=== PATIENT | female | born 1960 | race Caucasian/White ===

== ENCOUNTER → 2023-12-07 08:01 | Outpatient (REF) | payer OTHER, SELFPAY | LOC: HWRAD 08:01 | PROVIDERS: ATTENDING PHYSICIAN Internal Medicine Critical Care Medicine; FAMILY PHYSICIAN Physician Assistant Medical | DX: R91.8 Other nonspecific abnormal finding of lung field (principal) | CPT/HCPCS: 71250 ==

== ENCOUNTER → 2024-02-14 06:28 | Day surgery (SDC) | payer OTHER, SELFPAY | LOC: GI 06:28 | PROVIDERS: ATTENDING PHYSICIAN Internal Medicine Gastroenterology | DX: Z12.11 Encounter for screening for malignant neoplasm of colon (principal); Z86.010 Personal history of colon polyps; K64.8 Other hemorrhoids; D12.2 Benign neoplasm of ascending colon; D12.3 Benign neoplasm of transverse colon | CPT/HCPCS: 45385; 45380; 88305 ==

== ENCOUNTER → 2024-04-20 07:38 | Outpatient (REF) | payer OTHER, SELFPAY | LOC: RAD 07:38 | PROVIDERS: ATTENDING PHYSICIAN Nurse Practitioner Family | DX: R05.3 Chronic cough (principal) | CPT/HCPCS: 71046 ==

== ENCOUNTER → 2024-06-29 09:51 | Outpatient (REF) | payer OTHER, SELFPAY | LOC: HWRAD 09:51 | PROVIDERS: ATTENDING PHYSICIAN Family Medicine; FAMILY PHYSICIAN Physician Assistant Medical | DX: M54.6 Pain in thoracic spine (principal) | CPT/HCPCS: 71046 ==

== ENCOUNTER → 2024-07-13 09:21 | Outpatient (REF) | payer OTHER, SELFPAY | LOC: HWRAD 09:21 | PROVIDERS: ATTENDING PHYSICIAN Family Medicine; FAMILY PHYSICIAN Physician Assistant Medical | DX: M54.6 Pain in thoracic spine (principal) | CPT/HCPCS: 76700 ==

== ENCOUNTER → 2024-11-17 07:25 | Outpatient (REF) | payer OTHER, SELFPAY | LOC: HWRAD 07:25 | PROVIDERS: ATTENDING PHYSICIAN Physician Assistant Medical | DX: R10.11 Right upper quadrant pain (principal) | CPT/HCPCS: 76700 ==

== ENCOUNTER → 2024-12-07 07:57 | Outpatient (REF) | payer OTHER, SELFPAY | LOC: HWRAD 07:57 | PROVIDERS: ATTENDING PHYSICIAN Internal Medicine Critical Care Medicine; FAMILY PHYSICIAN Physician Assistant Medical; REFERRING PHYSICIAN Specialist | DX: R91.8 Other nonspecific abnormal finding of lung field (principal) | CPT/HCPCS: 71250 ==

== ENCOUNTER 2025-01-23 13:40 | Inpatient (IN) | payer OTHER, SELFPAY ==
[2025-01-23] VITALS (46 sets, daily range): BP systolic 121–184; BP diastolic 73–115; BMI 30.3
[2025-01-23 12:05] LABS: Glucose - Point of Care 96 mg/dl (70-99)
[2025-01-23 12:16] LABS: Hematocrit 44.6 % (37.0-47.0); Hemoglobin 15.2 g/dL (12.0-16.0); Mean Corp Hgb Conc. 34.1 g/dL (33.0-37.0); Mean Corpuscular Volume 89.7 fL (81.0-99.0); Nucleated Red Blood Cells % 0 %; Platelet Count 299 10^3/uL (130-400); Red Cell Dist. Width 13.6 % (11.5-14.5)
[2025-01-23 12:36] LABS: ALT (SGPT) 92 U/L (0-35); AST (SGOT) 41 U/L (14-36); Albumin 5.1 g/dl (3.5-5.0); Alkaline Phosphatase 89 U/L (38-126); Blood Urea Nitrogen 14 mg/dl (7-17); Calcium 10.9 mg/dl (8.4-10.2); Carbon Dioxide 32 mmol/L (22-30); Chloride 102 mmol/L (98-107); Glucose 101 mg/dl (70-99); Potassium 4.2 mmol/L (3.5-5.1); Sodium 142 mmol/L (135-145); Total Protein 8.3 g/dl (6.3-8.2); eGFR > 60.00
[2025-01-23 12:37] LABS: INR 1.01; PT 13.6 Sec (11.4-14.6)
[2025-01-23 12:38] LABS: APTT 27.9 Sec (23.4-35.0)
--- NOTE | 2025-01-23 12:39 | ED.CVA ---
History of Present Illness
General
Chief Complaint: CVA/TIA Symptoms
Source: patient
Time Seen by Provider: 01/23/25 12:06
Onset of Stroke Symptoms
Onset of symptoms known: Yes
Date of onset of symptoms: 01/23/25
Time of onset of symptoms: 10:00
History of Present Illness
History of Present Illness:
64-year-old female presents to the emergency room for evaluation after having a sudden change in her vision at 10 AM. Patient went to an eye doctor where she was noted to have some difficulty speaking prompting her to be sent to the emergency room.
Patient also experiencing some paresthesias of the left hand. She is complaining of a right-sided headache as well. No recent trauma. Patient does have a history of MS. Stroke alert was called on arrival.
Past History
Past History
ED Past Medical History: Other (MS)
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
Social History
Tobacco: Non-smoker
Alcohol: None
Personal:
Living: with family
Family History
Family History: Negative Early CAD
Phy Exam
Physical Exam
Physical Exam:
General: Awake, Alert, Oriented X3. Anxious, mild aphasia
Vitals: unremarkable
Head: Atraumatic
Eyes: Pupils equal, EOMI
Throat: Airway intact, no exudates
Neck: Trachea midline
Lungs: Clear and equal b/l
Heart: Regular rate, no murmurs
Abd: Soft, Nontender, No pulsatile mass
Neuro: Cranial nerves intact, muscle strength equal bilaterally, cerebellar exam normal
Skin: Warm, dry, no rash
Extremities: pulses equal b/l, no edema
Course
Orders/Labs/Results
Orders:
Orders
01/23/25 11:59
Electrocardiogram (*1) Urgent
Reason for Study: Other
Other Reason for Exam: Possible Stroke
CT HEAD STROKE ALERT W/o Cont Urgent
Comment:
Reason For Exam: visual changes
Bedside Glucose- Treatment ONCE
Cardiac Monitoring- Treatment ONCE
EKG- Treatment ONCE
IV Insert/Care/Rem.- Treatment PRN
Vital Signs As Directed
Frequency: Other
Weight As Directed
Frequency: Once
Comment: ZERO STRETCHER SCALE FOR ACCURATE WEIGHT
O2 Therapy [RESP] Urgent
Titrate/Wean O2 to maintain O2 sat greater than (%): 93
Special Instructions: MAINTAIN CONTINUOUS O2 SATS > OR = 93%
01/23/25 12:01
Complete Blood Count/With Diff Urgent
Comprehensive Metabolic Panel Urgent
Glycohemoglobin (HgbA1c) Urgent
PTT Urgent
Prothrombin Time Urgent
Troponin I Urgent
01/23/25 12:10
CT BRAIN PERF STROKE ALERT Stat
Comment:
Reason For Exam: aphasia, left sided weakness
CT HEAD/NECK ANG STROKE ALERT Stat
Comment:
Reason For Exam: aphasia, left sided weakness
01/23/25 12:34
Tenecteplase [Tnkase] 19 mg Syringe [Syringe Non-Pump] 0 ml IV NOW
Provider explained risk/benefits to patient &/or caregiver?: Yes
Blood pressure: 182/97
01/23/25 13:20
Admit/Transfer Patient As Directed
Co-Sign Provider:
Level of Care: Inpatient admission
Assign to:: ICU
Physician / Group: jenni
Diagnosis: cva
Reason for Hospitalization: cva
Expected length of stay greater than two midnights?: Yes
ELOS- Estimated Length of Stay in days: 2
I certify the patient meets the requirements for IP care: Yes
Code Status As Directed
Resuscitation Status: Do not resuscitate
Reached after discussion with pt or family/Healthcare POA: Yes
DNR Bracelet Application ONCE
PRN Pain Medication Management As Directed
May give lesser potent ordered pain med per pt: Yes
preference::
Protocol:: Medication orders for pain may be administered in a
manner that supports deferring to patient preference
when the pt is:
- Requesting an ordered lesser potent pain medication.
Least to most potent pain medications are defined
as: acetaminophen < NSAID < tramadol < opioids
(morphine, oxycodone, hydromorphone).
- Requesting a lesser dose of the same medication IF
ORDERED.
- Requesting a less intrusive route of administration
if both routes are prescribed by the provider (PO <
IV).
01/23/25 13:42
Acetaminophen [Tylenol] 650 mg PO Q4HPRN PRN
Albuterol Nebs [Ventolin Nebules] 2.5 mg INH R Q4HPRN PRN sob
Labetalol HCl [Trandate] 5 mg IV Q6HPRN PRN
01/23/25 13:42
Electrocardiogram (*1) Routine
Reason for Study: TIA/Stroke
Case Management Consult Once
Case Management Consult: Other
DIETARY IP CONSULT Routine
Reason for Consult: stroke/TIA
Catalyst Recovery Operator Consult Routine
Consulting Provider: Lyle Workman
Was physician already notified: Yes
NEUROLOGY CONSULT Urgent
Consulting Provider: Jemal العراقي
Was physician already notified: Yes
Assistant Teacher Primary Urgent
MR Brain Without Contrast Routine
Comment: complete 24 hrs post tenecteplase administration
Reason For Exam: possible stroke, status post tenecteplase
Recent pill cam endoscopy?: No
Hemetest Stools As Directed
Comment: hemoccult all stools if patient received tenecteplase
NIH Stroke Scale As Directed
Directions: Other
Comment: NIH stroke Scale to be completed prior to thrombolytic administration, then every 1 hour for 2
hours, then every shift and with change in condition and/or mental status.
Neurological Checks As Directed
Frequency: Per unit guidelines
Additional Instructions:: after start of thrombolytic therapy:
q15min x 2 hrs, q30min x 6 hrs, q1h x 16 hrs, q4h x 24 hrs, then every shift and
with any changes.
Notify MD As Directed
Notify physician if: - Any deterioration, change in neurological status, development of severe headache,
nausea and vomiting, or with any signs of bleeding. (see guidelines for suspected
intracerebral hemorrhage).
- If intracranial hemorrhage is suspected or confirmed by imaging, anticipate need for
osmotic diuretic to maintain euvolemia.
Notify MD As Directed
Notify physician if: Glucose less than 70 or greater than 180.
Anticipate corrective insulin orders.
Notify MD As Directed
Notify physician if: SBP not at goal within 30 minutes of prn LABETALOL administration.
notify provider to initiate continuous infusion of nicardipine or clevidipine.
Notify MD As Directed
Notify physician if: unable to obtain MRI of head within 22-32 hours of tenecteplase administration
- contact Neurology for order for CT of head without contrast
Patient Education As Directed
Type: Stroke education packet
Comment: provide to patient and family
Pneumatic Compression Sleeves As Directed
Type: Knee high
Precautions As Directed
Type of Precautions: Bleeding
Comment: post Bleeding Precaution sign at bedside (if patient received tenecteplase)
Swallow Screening CVA/TIA ONLY As Directed
Comment: NPO until swallow screening completed
If patient FAILS swallow screening:: NPO and Speech consult and aspiration precautions
If patient PASSES swallow screening, diet:: Regular
Above diet order entered?: Yes- passed screening
Thrombolytic Precautions As Directed
Thrombolytic Precautions:: Parks bleeding precautions. Minimize invasive procedures and venipunctures,
avoid IM injections and over-handling patient, and check all puncture sites for
bleeding. Assess the patient and notify provider for signs and symptoms of
internal or serious bleeding, such as changes in vital signs or evidence of blood
in the urine or stool.
Additional instructions: Hemocult all stools.
Apply direct pressure or pressure dressing to any compressible puncture sites.
No ABG sampling or Redman insertion after Tenecteplase administration for 24 hours,
unless directed by the Neurologist/Attending.
Vital Signs As Directed
Frequency: q15m
Call for:: BP greater than 180/105 mmHg or less than 100/60 mmHg
Additional Instructions:: after start of thrombolytic therapy:
q15min x 2 hrs, q30min x 6 hrs, q1h x 16 hrs, q4h x 24 hrs, then every shift and
with any changes.
Ot Eval And Treat Routine
Pt Eval And Treat Routine
Activity Level: As Tolerated
Speech Therapy Eval & Treat Routine
DX Deep Vein Thrombosis Video Routine
01/23/25 20:00
Budesonide/Formoterol 80/4.5 [Symbicort 80/4.5 Mcg Inhaler] 2 puff INH R BID
01/24/25 06:00
Basic Metabolic Panel IN AM
Cardiovascular Evaluation IN AM
Complete Blood Count/No Diff IN AM
PTT IN AM
Prothrombin Time IN AM
01/24/25 08:00
Atorvastatin [Lipitor] 10 mg PO DAILY
Chlorthalidone [Hygroton] 12.5 mg PO DAILY
fingolimod See Dose Instructions PO DAILY
Abnormal Lab Results
01/23/25
12:01
MPV 10.5 H fL
(7.4-10.4)
Absolute Lymphs (auto) 0.8 L 10^3/uL
(1.2-3.4)
Neutrophils % 75.4 H %
(42.2-75.2)
Lymphocytes % 15.4 L %
(20.5-51.1)
Carbon Dioxide 32 H mmol/L
(22-30)
Glucose 101 H mg/dl
(70-99)
Calcium 10.9 H mg/dl
(8.4-10.2)
AST 41 H U/L
(14-36)
ALT 92 H U/L
(0-35)
Total Protein 8.3 H g/dl
(6.3-8.2)
Albumin 5.1 H g/dl
(3.5-5.0)
01/23/25 12:01
01/23/25 12:01
Vital Signs
Initial and Last Documented VS:
Initial Vital Signs
Temp Pulse Resp BP Pulse Ox
97.9 F 79 20 177/115 100
01/23/25 11:45 01/23/25 11:45 01/23/25 11:45 01/23/25 11:45 01/23/25 11:45
Last Documented Vital Signs
Temp Pulse Resp BP Pulse Ox
98.9 F 80 17 143/91 100
01/23/25 15:39 01/23/25 15:15 01/23/25 15:15 01/23/25 15:15 01/23/25 14:44
MDM/Problems Addressed
Differential Diagnosis Includes:
Hemorrhagic stroke, ischemic stroke, complicated migraine,
MDM/Problems Addressed:
Patient presents with aphasia, headache, visual field deficit. Stroke alert called on arrival. Patient evaluated by neurology. NIH score is essentially 01 for aphasia. However she is a candidate for thrombolytics as aphasia is quite debilitating
potentially. Dr. Mtz consented the patient for thrombolytics and ordered thrombolytics. Patient will be admitted to the intensive care unit. Imaging did not show any evidence for large vessel occlusion. Aspect score was 10.
*Radiology
Radiology exam reviewed: radiology read reviewed
*Pulse Oximetry
SaO2: 99
Nasal Cannula flow liters per minute: 99
Oxygen Mode of Delivery: Room air
Patient hypoxic: no
*EKG
Interpreted by ED Provider?: Yes
Heart Rate: 83
Rate: normal
Rhythm: sinus
[place]: normal axis
Interval: normal interval
QRS Pattern: normal QRS
Ischemia: no ischemia
*Hearing Aid Repairer Interpretation
Rate: normal
Interpretation: normal
Rhythm: sinus
*Critical Care Note
Total Time (30-74mins, 75-104mins- exclusive of procedures): 35 min
comment:
Critical care statement: A total of 35 minutes of critical care time was provided for this patient. This includes management of unstable vital signs, evaluation of the patient at bedside, reviewing the patient's pertinent medical records, discussion
with consultants, review of old EKGs and review of pertinent medical records. This time with separate from time utilized to perform the aforementioned documented procedures
ED Attending Note
-
Portions of this chart may have been created with voice recognition software.� Occasional wrong word or��sound alike� substitutions may have occurred due to the inherent limitations of voice recognition software.
Discharge Plan
Departure
Patient Disposition: Admit
Date of Disposition: 01/23/25
Time of Disposition: 12:50
Admit to: ICU
Presentation/result/management discussed w/ accepting MD/DO: Hospitalist
Condition: Serious
Discharge Problem:
Acute CVA (cerebrovascular accident)
Interventions
Interventions:
*Risk Screen - Suicide Last Done: 01/23/25 11:45
*General Assessment Last Done: 01/23/25 12:35
*Neglect/Abuse Screening Last Done: 01/23/25 11:45
*ED- Fall Risk Assessment Last Done: 01/23/25 12:40
*ED COVID-19 Vaccine History Last Done: 01/23/25 11:45
*Nursing Disposition Last Done: 01/23/25 14:03
ED- Pulmonary Assessment Last Done: 01/23/25 12:35
ED- Neurological Assessment Last Done: 01/23/25 12:31
ED- Cardiac Assessment Last Done: 01/23/25 12:35
ED Swallowing Screen Last Done: 01/23/25 13:16
Discharge Date and Time
Discharge Date/Time: 01/23/25 14:03
[2025-01-23 12:42] LABS: Troponin I < 0.012 ng/ml
[2025-01-23] MEDS: TNKASE 3.8 MG IV (12:44)
--- NOTE | 2025-01-23 12:58 | CON.NEURO ---
Neuro Assessment/Plan
Assessment
head CT imgs rev'd no bleed
CTA no LVO, no hemodynamically significant stenosis
CTP core 0, penumbra 0
brain MRI 02/2023 imgs rev'd agree consistent w/ MS
Stroke treated with TNK
NIHSS 1 for aphasia
with aphasia left arm numbness and left pronator drift, unable to localize so some suspicion for embolic
given her age and her MS not being very active I would say stroke is more likely than new MS lesion.
admit ICU 24 hrs of monitoring then brain MRI w/o and with contrast
Consultation
Order
Date of Consultation: 01/23/25
Requesting Provider: Marbin Stanton
Reason for Consult: Stroke alert
Subjective/Objective
Subjective Data
Date of Service: January 23, 2025
from ED notes:
64-year-old female presents to the emergency room for evaluation after having a sudden change in her vision at 10 AM. Patient went to an eye doctor where she was noted to have some difficulty speaking prompting her to be sent to the emergency room.
Patient also experiencing some paresthesias of the left hand. She is complaining of a right-sided headache as well. No recent trauma. Patient does have a history of MS. Stroke alert was called on arrival.
right handed.
h/o MS diagnosed age 37 initially presented with difficulty cleaning her contact lenses. has not really had many clinical MS attacks and denies prior aphasia or left sided weakness/numbness with MS attacks. She is on Gilenya. Neurologist Curtis
Tameka. gets her MS MRIs here.
Objective Data
Vital Signs
Temp Pulse Resp BP Pulse Ox
36.7 C 86 12 159/90 99
01/23/25 12:35 01/23/25 12:45 01/23/25 12:45 01/23/25 12:45 01/23/25 12:47
Lab Results
01/23/25 12:01
01/23/25 12:01
PT 13.6 Sec (11.4-14.6) 01/23/25 12:01
INR 1.01 01/23/25 12:01
APTT 27.9 Sec (23.4-35.0) 01/23/25 12:01
Sodium 142 mmol/L (135-145) 01/23/25 12:
Potassium 4.2 mmol/L (3.5-5.1) 01/23/25 12:01
BUN 14 mg/dl (7-17) 01/23/25 12:01
Glucose 101 mg/dl (70-99) H 01/23/25 12:01
Calcium 10.9 mg/dl (8.4-10.2) H 01/23/25 12:01
Patient Allergies
glatiramer (copolymer 1) (From Copaxone) Allergy (Unknown, Verified 01/23/25 11:51)
Unknown
bupropion (From Wellbutrin) Allergy (Verified 01/23/25 11:51)
Unknown
dalfampridine (From Ampyra) Allergy (Verified 01/23/25 11:51)
Unknown
venlafaxine (From Effexor) Allergy (Verified 01/23/25 11:51)
Unknown
Physical Exam
-
AAOx3, speech clear, mild aphasia with difficulty identifying printed materials
VFF, EOMI, deepening of L palpebral fissure
left pronator drift, trace weakness LUE/LE
sensation intact to touch/pin
--- NOTE | 2025-01-23 13:24 | HPS.HSE ---
Family Physician
-
Family Physician: Ivis Callejas
Chief Complaint
-
vision loss
History of Present Illness
64-year-old female past medical history of multiple sclerosis, hypertension, hypercholesteremia, asthma, gallstones, presenting with sudden change in vision at 10 AM today. She noticed that her left eye was blurry like a kaleidoscope. She made an
appointment with the eye doctor when she got there she was having left hand numbness and some speaking difficulty and numbness in her bilateral area around her mouth, and felt like she needed to come to the emergency room. She denies headache but
has pressure in her temples bilaterally. The numbness in her left hand is improved. The blurry vision is improved.
Multiple sclerosis stale for years on fingolimod.
She denies any vertigo. Denies any difficulty swallowing.
She denies smoking or alcohol use.
Medical History
Past Medical History
Past Medical History: Reports Other (multiple sclerosis, hypertension, hypercholesteremia, asthma, gallstones,)
Past Surgical History: Reports None
Social History
Tobacco: Non-smoker
Alcohol: None
Drug: None
Family History
Family History: Not pertinent
Allergies / Home Medications
Allergies reflects when Allergies were last updated in [facility].
Home Medications with original date entered in [facility]
Allergy/Medication List:
Allergies
Allergy/AdvReac Type Severity Reaction Status Date / Time
glatiramer (copolymer 1) Allergy Unknown Unknown Verified 01/23/25 13:09
(From Copaxone)
bupropion (From Wellbutrin) Allergy Unknown Verified 01/23/25 13:09
dalfampridine (From Ampyra) Allergy Unknown Verified 01/23/25 13:09
duloxetine (From Cymbalta) Allergy Unknown Verified 01/23/25 13:09
escitalopram (From Lexapro) Allergy Unknown Verified 01/23/25 13:09
losartan Allergy Unknown Verified 01/23/25 13:09
venlafaxine (From Effexor) Allergy Unknown Verified 01/23/25 13:09
Home Medications
albuterol sulfate 2.5 mg/3 mL (0.083 %) solution for nebulization 2.5 mg inhalation PRN PRN sob 01/23/25
atorvastatin 10 mg tablet 10 mg PO DAILY 01/23/25
chlorthalidone 25 mg tablet 25 mg PO DAILY 01/23/25
fingolimod 0.5 mg capsule 0.5 mg PO DAILY 01/23/25
mometasone-formoterol HFA 50 mcg-5 mcg/actuation aerosol inhaler (Dulera) 2 inh inhalation BID 01/23/25
Review of Systems
-
Constitutional: Reports No Symptoms
EENT: Reports No Symptoms
Respiratory: Reports No Symptoms
Cardiac: Reports No Symptoms
Abdomen/GI: Reports No Symptoms
: Reports No Symptoms
Musculoskeletal: Reports No Symptoms
Skin: Reports No Symptoms
Neurological: Reports No Symptoms
Endocrine: Reports No Symptoms
Hematologic/Lymphatic: Reports No Symptoms
Psych: Reports No Symptoms
Physical Exam
Vital Signs
Vital Signs
Temp Pulse Resp BP Pulse Ox
98.0 F 84 12 160/108 97
01/23/25 12:35 01/23/25 13:15 01/23/25 13:15 01/23/25 13:19 01/23/25 13:15
Physical Exam
General: Well Developed, Well Nourished and No Apparent Distress
HEENT: NormoCephalic, Moist mucous membranes and Atraumatic
Respiratory: Clear
Cardiac: S1/S2 and Regular Rhythm; No Murmur or Rub
GI: Soft, Non Tender, Non Distended and Normal Bowel Sounds; No Organomegaly
Rectal: Deferred by Provider
Musculoskeletal: No Clubbing, No Cyanosis and No Edema
Skin: No Rash
Neuro: Nonfocal/grossly intact
Laboratory Results
-
01/23/25 12:01
01/23/25 12:
Laboratory Results
PT 13.6 Sec (11.4-14.6) 01/23/25 12:
INR 1.01 01/23/25 12:
APTT 27.9 Sec (23.4-35.0) 01/23/25 12:
Total Bilirubin 0.9 mg/dl (0.2-1.3) 01/23/25 12:
AST 41 U/L (14-36) H 01/23/25 12:
ALT 92 U/L (0-35) H 01/23/25 12:
Alkaline Phosphatase 89 U/L (38-126) 01/23/25 12:01
Troponin I < 0.012 ng/ml 01/23/25 12:01
Data Reviewed
-
Lab Data: Labs Reviewed by me
Old Records: Reviewed
Impression/Plan
-
IMPRESSION:
PLAN:
# Concern for acute CVA
-CT angio head and neck without any focal occlusions
- TNK given
- Neurochecks per protocol
- Check A1c and lipid panel
- Check MRI brain
- Speech and swallow, PT OT
- Regular diet if can tolerate
- Neurology following
# Hypertensive urgency
# Essential hypertension
- Blood pressure 170s
- IV labetalol to keep blood pressure under 180/100
- Continue chlorthalidone
Multiple sclerosis
- Has been stable on fingolimod for years
Asthma
- Continue albuterol, Dulera
Hypercholesterolemia
History of gallstones
-Scheduled to have surgery in the near future
DNR/DNI
DVT prophylaxis�SCDs
Regular diet
--- NOTE | 2025-01-23 14:06 | CON.INTV ---
Consultation
Consultation Request
Date/Time Consultation Requested: 01/23/2025-2 PM
Date/Time Consultation Performed: 01/23/2025-2 PM
Requesting Provider: hospitalist
Performing Provider: Dr. Workman
Reason for Consultation: CVA/critical care management
Medical History
-
Chief Complaint: CVA
History of Present Illness:
64-year-old female with a history of multiple sclerosis, hypertension, hyperlipidemia, asthma, gallstones who had sudden changes in vision felt to have acute CVA and received TNK-engine inspector consulted for CVA/post TNK/critical care management
01/23/2025.. This morning she woke up and felt like she could not see out of her left eye as well as she normally does and had some numbness in her left hand. She went to the eye doctor. She eventually came to the emergency room where she had
further workup and felt to have a possible stroke. She had mild word finding issues. She denies any current shortness of breath, chest congestion, productive cough, pleurisy, abdominal pain, nausea, or leg swelling. She does not have any focal
weakness either.
Past Medical History
Past Medical History: None (Hypertension. Hyperlipidemia. Asthma. Postnasal drip. Multiple sclerosis. Trigeminal neuralgia. Gallstones.)
Social History
Tobacco: Non-smoker
Alcohol: None
Drug: None
Living: With Family
Occupational Exposures: No known asbestos exposure
Environmental Exposures: No known tuberculosis exposure
Family History
Family History: Reviewed & Not Pertinent (Father-hypertension. Mother-dementia)
Allergies / Home Medications
Allergies
Allergy/AdvReac Type Severity Reaction Status Date / Time
glatiramer (copolymer 1) Allergy Unknown Unknown Verified 01/23/25 13:09
(From Copaxone)
bupropion (From Wellbutrin) Allergy Unknown Verified 01/23/25 13:09
dalfampridine (From Ampyra) Allergy Unknown Verified 01/23/25 13:09
duloxetine (From Cymbalta) Allergy Unknown Verified 01/23/25 13:09
escitalopram (From Lexapro) Allergy Unknown Verified 01/23/25 13:09
losartan Allergy Unknown Verified 01/23/25 13:09
venlafaxine (From Effexor) Allergy Unknown Verified 01/23/25 13:09
Home Medications
�Medication �Instructions �Recorded �Confirmed �Last Taken �Type
albuterol sulfate 2.5 mg/3 mL 2.5 mg inhalation Q4HPRN PRN sob 01/23/25 01/23/25 Unknown History
(0.083 %) solution for nebulization
atorvastatin 10 mg tablet 10 mg PO DAILY High Cholesterol 01/23/25 01/23/25 Unknown History
chlorthalidone 25 mg tablet 12.5 mg PO DAILY Blood Pressure 01/23/25 01/23/25 Unknown History
fingolimod 0.5 mg capsule 0.5 mg PO DAILY Neurological 01/23/25 01/23/25 Unknown History
Condition
mometasone-formoterol HFA 50 mcg-5 2 inh inhalation BID 01/23/25 01/23/25 Unknown History
mcg/actuation aerosol inhaler Lung/Breathing Issues
(Dulera)
Review of Systems
-
Unable to Obtain full review of systems at this time due to: Other (Per HPI)
Vitals / Labs / Diagnostic Testing
Vital Signs
Temp Pulse Resp BP Pulse Ox
98.0 F 83 17 174/111 100
01/23/25 12:35 01/23/25 13:46 01/23/25 13:46 01/23/25 13:46 01/23/25 13:30
Lab Data
01/23/25 12:01
01/23/25 12:01
Laboratory Results
01/23/25
12:01
PT 13.6
INR 1.01
APTT 27.9
Diagnostic Testing:
Physical Exam
-
Exam:
Well-nourished and well-developed in no apparent distress
HEENT-atraumatic, normocephalic
Neck-supple, no JVD, no bruit
Heart-regular rate and rhythm-no murmurs, rubs or gallops
Chest-clear to auscultation, no wheezes, crackles
Back-no tenderness
Abdomen-soft, nontender, nondistended, no hepatosplenomegaly
Extremities-no cyanosis, clubbing, edema and good peripheral pulses
Integument-intact, no rashes, lesions or ecchymosis
Neurology-alert and oriented, nonfocal motor and sensory exam
Assessment
-
64-year-old female with a history of multiple sclerosis, hypertension, hyperlipidemia, asthma, gallstones who had sudden changes in vision felt to have acute CVA and received TNK-engine inspector consulted for CVA/post TNK/critical care management
01/23/2025.
Acute CVA-status post TNK
Hypertensive urgency
Mild transaminitis
Conditions present prior to admission:
Hypertension.
Hyperlipidemia.
Asthma.
Pulmonary nodules
Multiple sclerosis.
Trigeminal neuralgia
Gallstones.
Plan
Admit patient to medical intensive care unit
Supplemental oxygen to maintain saturation greater than 92%
Aspiration precautions
Neurology evaluation
Monitor blood pressure closely-goal SBP < 180, DBP < 105
Neuro checks per protocol
CT head and CT head and neck angiogram summarized below
MRI head/MRA head and neck in next 24 hours
Status post tenecteplase infusion
Hold antiplatelet therapy �24 hours
Check lipid panel-goal LDL less than 70
Check echocardiogram
Check A1c
Carotid circulation evaluation
Atorvostatin 80 mg daily if tolerated
Monitor blood sugar-insulin as needed-goal blood sugar 140-180
DVT prophylaxis-sequential for 24 hours and then Lovenox
Speech therapy/occupational therapy/physical therapy evaluation
Stroke education packet
No driving-patient needs outpatient visual field testing/clearance by ophthalmology for driving clearance
The patient last saw Dr. Workman in the office 12/19/2024 and maintained on Dulera, albuterol, CT chest November 2025 was recommended
Critical care statement: A total of 65 minutes of critical care time was provided for this patient today. This includes management of unstable vital signs, evaluation of the patient at bedside, reviewing the patient's pertinent medical records
including radiographs, microbiology, laboratory evaluations, and discussion with primary team, consultants, pharmacy, nutrition, physical therapy, case management, charge nurse, critical care nursing, and respiratory therapy.
Diagnostic data:
Chest x-ray 01/23/2025-NAD
CT chest 08/20/21-scattered bilateral pulmonary nodules measuring up to 8 mm, Follow-up CT recommended in 3-6 [address] .
[address] chest 12/16/21-comparison made to 08/20/21, stable nodules, 3 and 6 mm-left upper lobe, 3, 4, and 6 mm-right lower lobe, an 8 mm left lower lobe-patient notified-repeat in one year-prescription sent ,
CT chest 11/23/22-multiple pulmonary nodules again demonstrated which are stable, tiny low attenuation 2.5 mm nodule anterior left upper lobe, slightly increased in size, previously measuring 1.5 mm-patient notify-repeat in one year-prescription sent .
CT chest 12/07/23-multiple bilateral subcentimeter pulmonary nodules essentially stable, 8mm left lower lobe, 6 mm left upper lobe, 3 mm right lower lobe, 3 mm right upper lobe, 4 mm right lower lobe, 2 mm right lower lobe now 3 mm nodules
essentially without change-patient notified- repeat in 1 year-prescription sent .
CT chest 12/07/24-multiple, unchanged nodules including 10 mm medial left lower lobe, 8mm centrally calcified nodule left upper lobe, 4 mm right upper lobe, 4 mm right lower lobe, 5 mm left upper lobe, possibly slightly enlarged from previous 4 mm
and unchanged 6 mm nodule lateral right lower lobe and minimal increase in size of 5.4 mm nodule right lower lobe, previously 4.5 mm-patient notified-repeat in one year-prescription sent.
CT head 01/23/2025-no intracranial hemorrhage or abnormal mass effect, stable focus of hypoattenuation in the left parotid lobe unchanged compared to prior MRI, no definitive transcortical infarct
CT head and neck angiogram 01/23/2025-no evidence for large vessel occlusion or arterial dissection
Spirometry 11/12/21-FEV1 2.69 L-114%, FVC 3.19 L-104%, no significant BD response. Normal spirometry.
PFT 05/13/22-FEV1 2.86 L-119%, FVC 3.41 L-109%, TLC 103%, RV 80%, DLCO 99%. Normal. PFTs
Data Reviewed
-
PFT: Report reviewed by me
EKG: Report reviewed by me
Radiology: Image personally visualized and interpreted and Report reviewed by me
CT Scan: Image personally visualized and interpreted and Report reviewed by me
Medical Tests (Nuc Med, Echo etc): Report reviewed by me
Labs: Labs reviewed by me
Old Records: Reviewed
Critical Care Time (in minutes): 65
[2025-01-23 14:13] LABS: Glucose - Point of Care 101 mg/dl (70-99)
--- NOTE | 2025-01-23 14:21 | CON.INTV ---
Consultation
Consultation Request
Date/Time Consultation Requested: January 23, 2025; 14:00
Date/Time Consultation Performed: January 23, 2025; 14:30
Medical History
-
Chief Complaint: changes in vision, speech, and arm numbness
History of Present Illness:
64-year-old female with PMH of multiple sclerosis, HTN, HLD, asthma, gallstones p/w changes in vision this morning. She reports that her L eye had blurry vision and then experienced L hand numbess and dysarthria. She presents to the ED.
In the ED, she undergoes CT Brain perfusion, and CTA Head/Neck which showed no evidence of LVO or arterial dissection. TNK is administered in the ED due to high suspicion for stroke.
She then is admitted to ICU. On the ICU, she reports feeling well. The vision blurriness and left arm numbness have improved. She endorses pain in L face/jain. She denies focal weakness. She otherwise denies dyspnea, chest pain, abdominal pain.
Past Medical History
Past Medical History: HTN, Hypercholesterolemia and Other (Multiple sclerosis, asthma, gallstones, trigeminal neuralgia)
Past Surgical History: None
Social History
Tobacco: Non-smoker
Alcohol: Other (rarely)
Drug: None
Personal:
Living: With Family
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
Allergies / Home Medications
Allergies
Allergy/AdvReac Type Severity Reaction Status Date / Time
glatiramer (copolymer 1) Allergy Unknown Unknown Verified 01/23/25 13:09
(From Copaxone)
bupropion (From Wellbutrin) Allergy Unknown Verified 01/23/25 13:09
dalfampridine (From Ampyra) Allergy Unknown Verified 01/23/25 13:09
duloxetine (From Cymbalta) Allergy Unknown Verified 01/23/25 13:09
escitalopram (From Lexapro) Allergy Unknown Verified 01/23/25 13:09
losartan Allergy Unknown Verified 01/23/25 13:09
venlafaxine (From Effexor) Allergy Unknown Verified 01/23/25 13:09
Home Medications
�Medication �Instructions �Recorded �Confirmed �Last Taken �Type
albuterol sulfate 2.5 mg/3 mL 2.5 mg inhalation Q4HPRN PRN sob 01/23/25 01/23/25 Unknown History
(0.083 %) solution for nebulization
atorvastatin 10 mg tablet 10 mg PO DAILY High Cholesterol 01/23/25 01/23/25 Unknown History
chlorthalidone 25 mg tablet 12.5 mg PO DAILY Blood Pressure 01/23/25 01/23/25 Unknown History
fingolimod 0.5 mg capsule 0.5 mg PO DAILY Neurological 01/23/25 01/23/25 Unknown History
Condition
mometasone-formoterol HFA 50 mcg-5 2 inh inhalation BID 01/23/25 01/23/25 Unknown History
mcg/actuation aerosol inhaler Lung/Breathing Issues
(Dulera)
Review of Systems
-
History Source: Patient
All other systems: Negative unless noted
Constitutional: No Symptoms
EENT: Other (vision changes, pain on left face)
Respiratory: No Symptoms
Cardiac: No Symptoms
Abdomen/GI: No Symptoms
: No Symptoms
Musculoskeletal: No Symptoms
Skin: No Symptoms
Neuro: Weakness (left arm) and Numbness (left arm)
Endocrine: No Symptoms
Hematologic/Lymphatic: No Symptoms
Vitals / Labs / Diagnostic Testing
Vital Signs
Temp Pulse Resp BP Pulse Ox
98.0 F 83 17 174/111 100
01/23/25 12:35 01/23/25 13:46 01/23/25 13:46 01/23/25 13:46 01/23/25 13:30
Lab Data
01/23/25 12:01
01/23/25 12:01
Laboratory Results
01/23/25
12:01
PT 13.6
INR 1.01
APTT 27.9
Diagnostic Testing:
Troponin: < 0.012
A1c = 5.4
Hgb: 15.2
INR: 1.01
Na+ 142
K+ 4.2
AST: 41
ALT: 92
Imaging:
CTA Head/Neck and CT brain, 01/23/2025:
1. No evidence of large vessel occlusion, or arterial dissection.
2. Tortuous course of each internal carotid artery. No significant carotid arterial stenosis.
CXR, 01/23/2025:
1. Clear lungs.
2. No significant change compared to prior study.
Physical Exam
-
HEENT: Normocephalic, Anicteric and Moist Mucous Membranes
Cardiovascular: S1/S2, Regular Rhythm, Murmur (no murmurs on my exam) and Peripheral Edema (no LE edema on my exam)
Respiratory: Clear (CTAB on my exam)
GI: Soft, Non Distended and Non Tender
Neurology: AO x 3 and Other (detailed neurological assessment below)
Skin: Warm, Dry and Good Color
General: Other (no acute distress but pain on left face)
Exam:
Neurological exam:
AOx3
EOMI, PERRLA
Cranial Nerves: II-VII, IX, XI, and XII grossly intact (did not formally assess VIII or X)
Speech: possibly very mild dysarthria on my exam (I would describe as mild difficulty in word-finding/sentence completion however this does not impair overall communication with patient).
Motor Exam:
- upper extremities 4/4 strength to elbow extension and flexion
- lower extremities 4/4 strength to knee extension, and dorsiflexion, plantar flexion
Sensory Exam:
- grossly intact bilaterally in upper and lower extremities
Coordination:
- finger to nose intact
- did not assess heel to larry
Gait/Reflexes: did not formally evaluate
Assessment
-
64-year-old female with PMH of multiple sclerosis, HTN, HLD, asthma, gallstones p/w changes in vision this morning (01/23/2025). She reports that her L eye had blurry vision and then experienced L hand numbess and dysarthria with most concern for a
cerebrovascular accident.
Please see attending note/attestation for final recommendations.
# Acute CVA s/p TNK administration
- No imaging evidence of LVO
- Neurological exam was grossly nonfocal
- EKG showed NSR (with nonspecific ST abnormality)
- TNK was administered
- fall precautions
- Regular neurological assessments
- MRI brain
- f/u A1c and lipid panel
- Consider echocardiogram
# HTN urgency
- BP this admission have ranged up to 180s/110s but no evidence of end-organ dysfunction
- Most recently 163/104
- Labetalol PRN with goal SBP < 180
# Left side headache
# Trigeminal neuralgia
- May be attributed to HTN/elevated BPs
- Consider acetominophen 650mg PRN
# Multiple sclerosis - chronic
- Continue fingolimod
# Heme
- SCDs for DVT ppx given TNK
# GI
- Encourage PO intake as tolerated
Chronic conditions present prior to admission:
Hypertension.
Hyperlipidemia.
Asthma.
Pulmonary nodules
Multiple sclerosis.
Trigeminal neuralgia
Gallstones.
Data Reviewed
-
EKG: Report reviewed by me
Radiology: Report reviewed by me
CT Scan: Report reviewed by me
Labs: Labs reviewed by me
Total Time Spent with Patient (in minutes): 20
[2025-01-23 14:26] LABS: Glycohemoglobin (HgbA1c) 5.4 % (4.0-5.6)
[2025-01-23] MEDS: TYLENOL 650 MG PO (14:36)
--- NOTE | 2025-01-23 15:00 | PTCARENOTE ---
Received pt from ER into room 3369 @ 1345 s/p receiving TNK in ER. NIH completed w off going CASHIER RECEPTIONIST- scored for mild slurring but improving- see neuro flow sheet. Pt. c/o moderate h/a; described as 'pressure,' in religious/jaw area on both sides.
Neuro, Dr. العراقي aware. Admin prn Tylenol- see SEP. SBP maintained <180. On admit, pt. c/o severe need to urinate. Placed on bedpan; unable to urinate. Bladder scanned for >1000mL in bladder. Dr. العراقي approved stand/pivot activity to BS. Pt.
voided 1300mL on BSC; transferred back into bed post void w/out issue. Pt. acclimated to and instructed on how to report care concerns. Call norton placed w in reach.
--- NOTE | 2025-01-23 16:10 | PTOTSP ---
Speech Language Pathology
Pt seen for speech/language evaluations. Pt with very slight dysarthria and mild expressive/receptive aphasia. Language evaluated via the Quick Aphasia Battery (QAB), form 1. Pt with an overall score of 8.44, indicative of overall mild deficits.
When reading the word 'novelist,' pt initially stated 'ovulist' but self-corrected. When repeating 'alcohol law enforcement agent,' pt stated 'gern...'
Pt also seen for clinical bedside swallow evaluation. P.O. trials of puree, regular solids, and thin liquids provided. Adequate mastication, bolus formation, and A-P transit noted with no oral residue. No overt signs of aspiration.
Recommend:
(1) Continue regular solids/thin liquids
(2) General aspiration precautions
(3) Meds as tolerated
(4) TOW MOTOR MECHANIC to follow for dysarthria and aphasia
[2025-01-23 16:44] LABS: Magnesium 2.1 mg/dl (1.6-2.3)
[2025-01-23] MEDS: ZOFRAN 4 MG IV (16:44)
[2025-01-23] MEDS: FIORICET 1 TAB PO (17:41)
--- NOTE | 2025-01-23 19:42 | PTCARENOTE ---
rec` pt at 1900 AAOx3. [facility] done previous RN, DITPI is a 0. JOY. pupils =4mm and reactive. SR on monitor. RA, 97%. round obese abdomen. finished her dinner. uses commode w/ 2 person assist. skin C/D/I, PIVs flushed and patent. call norton in reach, safe
environment maintained. family at bedside.
[2025-01-23] MEDS: SYMBICORT 80/4.5 MCG INHALER 2 PUFF INH (20:32)
--- NOTE | 2025-01-23 23:53 | PTCARENOTE ---
pt reassessed. no changes in pt assessment. call norton in reach, safe environment maintained.
[2025-01-24] VITALS (31 sets, daily range): BP systolic 95–164; BP diastolic 62–94; PULSE 75; O2SAT 97; BMI 30.7
[2025-01-24] MEDS: FIORICET 1 TAB PO ×3 (04:46→16:50)
--- NOTE | 2025-01-24 04:51 | PTCARENOTE ---
NIH continues to be a 0. no changes in pt assessment.
[2025-01-24 05:01] LABS: Hematocrit 39.5 % (37.0-47.0); Hemoglobin 13.5 g/dL (12.0-16.0); Mean Corp Hgb Conc. 34.2 g/dL (33.0-37.0); Mean Corpuscular Volume 89.0 fL (81.0-99.0); Platelet Count 255 10^3/uL (130-400); Red Cell Dist. Width 13.7 % (11.5-14.5)
[2025-01-24 05:21] LABS: Blood Urea Nitrogen 11 mg/dl (7-17); Calcium 9.4 mg/dl (8.4-10.2); Carbon Dioxide 28 mmol/L (22-30); Chloride 103 mmol/L (98-107); Estimated Creatinine Clearance 68 ml/min; Glucose 104 mg/dl (70-99); HDL Cholesterol 59 mg/dl; LDL Cholesterol, Calculated 109 mg/dl; Potassium 3.5 mmol/L (3.5-5.1); Sodium 138 mmol/L (135-145); Very Low Density Lipoprotein 29 mg/dl (0-30); eGFR > 60.00
[2025-01-24 05:31] LABS: INR 1.06; PT 14.1 Sec (11.4-14.6)
[2025-01-24 05:32] LABS: APTT 28.9 Sec (23.4-35.0)
--- NOTE | 2025-01-24 07:09 | W.PN.INTV ---
Today's Communication / Plan
Recommendations
Please see attg note for final recommendations:
MRI brain at ~ 12:45pm
Repeat LFTs before increasing statin dose
Echocardiogram
May be appropriate to transfer out of ICU today
Assessment
-
64-year-old female with PMH of multiple sclerosis, HTN, HLD, asthma, gallstones p/w changes in vision this morning (01/23/2025). She reports that her L eye had blurry vision and then experienced L hand numbess and aphasia with most concern for a
cerebrovascular accident.
Please see attending note/attestation for final recommendations.
# Acute CVA s/p TNK administration
- No imaging evidence of LVO
- TNK was administered 01/23/2025 at 12:44pm
- EKG showed NSR (with nonspecific ST abnormality)
- Today, Neurological exam was nonfocal, aphasia is improved, NIHSS = 0
- Lipid panel was within normal limits, A1c within normal limits
- fall precautions
- Regular neurological assessments
- MRI brain around 12:45pm
- Statin for secondary prevention and HLD
# HTN
- BP have been at goal, 120s - 130s/60s
- Chlorthalidone 12.5mg PO
- Labetalol PRN with goal SBP < 180, has not required labetalol since yesterday
# Left side headache
# Trigeminal neuralgia
- Reports improved
- May also be attributed to HTN/elevated BPs
- Continue acetominophen 650mg PRN and heat pads
# Multiple sclerosis - chronic
- Continue fingolimod
# Heme
- SCDs for DVT ppx given TNK
# GI
- Encourage PO intake as tolerated
Chronic conditions present prior to admission:
Hypertension.
Hyperlipidemia.
Asthma.
Pulmonary nodules
Multiple sclerosis.
Trigeminal neuralgia
Gallstones.
Plan
Disposition: transfer out of ICU may be appropriate
Neuro: MRI brain around 12:45pm today, tylenol/heat pads for headache
CV: atorvastatin, chlorthalidone for HTN
Respiratory:
GI: encourage PO intake
Renal: electrolytes within normal limits
ID: no abx
Heme: no antiplatelet agents until 24 hrs post TNK administration (~1pm today)
Subjective Dataa
Subjective Data
Date of Service:
Date of Service: January 24, 2025
Subjective:
64-year-old female with PMH of multiple sclerosis, HTN, HLD, asthma, gallstones p/w changes in vision on 01/23/2025. She reports that her L eye had blurry vision and then experienced L hand numbess and aphasia with most concern for a cerebrovascular
accident.
No acute events overnight. NIH Stroke scale = 0. Headache that is improving with tylenol and heat pads.
This morning, she feels improved, reports that she was able to communicate better. Denies numbness of weakness. Denies chest pain, dyspnea, or abdominal pain.
Review of Systems
General: Other (per HPI)
Objective Data
Data Reviewed
Vital Signs / I&O / Oxygen:
Vital Signs
Temp Pulse Resp BP Pulse Ox
98.4 F 68 16 118/78 97
01/24/25 03:20 01/24/25 05:45 01/24/25 05:45 01/24/25 05:45 01/24/25 04:30
Intake and Output
01/23/25 01/24/25 01/25/25
06:59 06:59 06:59
Intake Total 200 / 200
Output Total 2650 / 2650
Balance -2450 / -2450
SaO2 97
Nasal Cannula flow liters per 99
minute
Physical Exam
General: Comfortable
HEENT: Normocephalic and Anicteric
Cardiovascular: Regular Rhythm, Murmur (no murmurs on my exam) and Peripheral Edema (no LE edema on my exam)
Respiratory: Clear (CTAB)
GI: Soft, Non Distended and Non Tender
Neurology: Awake, Alert and Other (EOMI, PERRLA, motor and senstation grossly intact bilaterally for upper/lower extremities. Aphasia is improved compared to prior)
Skin: Warm and Dry
Labs/Micro/Reports
Lab Data
01/24/25 04:41
01/24/25 04:41
Laboratory Results
01/23/25 01/24/25
12:01 04:41
PT 13.6 14.1
INR 1.01 1.06
APTT 27.9 28.9
Lipid panel:
triglycerides = 148
total cholesterol = 197
LDL = 109
HDL = 59
A1c = 5.4%
LFTs from yesterday, AST 41, ALT 92 (01/23)
Care Review
-
Total Time Spent with Patient (in minutes): 15
[2025-01-24] MEDS: LIPITOR 10 MG PO (07:12)
[2025-01-24] MEDS: NON-FORMULARY ITEM 0.5 MG PO (07:12)
[2025-01-24] MEDS: SYMBICORT 80/4.5 MCG INHALER 2 PUFF INH ×2 (07:16→19:43)
--- NOTE | 2025-01-24 07:38 | W.PN.INTV ---
Today's Communication / Plan
Recommendations
Neurovascularly intact
Continue to monitor in ICU post TNK
Brain MRI
If remains neurovascularly intact then transfer out of ICU-director customer will sign off-call pulmonary if respiratory issues arise
Assessment
-
64-year-old female with a history of multiple sclerosis, hypertension, hyperlipidemia, asthma, gallstones who had sudden changes in vision felt to have acute CVA and received TNK-director customer consulted for CVA/post TNK/critical care management
01/23/2025.
Acute CVA-status post TNK
Hypertensive urgency
Mild transaminitis
Conditions present prior to admission:
Hypertension.
Hyperlipidemia.
Asthma.
Pulmonary nodules
Multiple sclerosis.
Trigeminal neuralgia
Gallstones.
Plan
Patient remains hemodynamically and neurologically intact with improvement and NIH
Supplemental oxygen to maintain saturation greater than 92%
Aspiration precautions
Neurology evaluation-0 ongoing
Monitor blood pressure closely-goal SBP < 180, DBP < 105
Neuro checks per protocol
CT head and CT head and neck angiogram summarized below
MRI head/MRA head 01/24/2025
Status post tenecteplase infusion
Hold antiplatelet therapy �24 hours
Check lipid panel-goal LDL less than 70
Check echocardiogram-pending
A1c-5.4%
Atorvostatin 80 mg daily if tolerated-check LFTs-reviewed with critical care pharmacy
Monitor blood sugar-insulin as needed-goal blood sugar 140-180
DVT prophylaxis-sequential for 24 hours and then Lovenox for heparin
Speech therapy/occupational therapy/physical therapy evaluation
Stroke education packet
No driving-patient needs outpatient visual field testing/clearance by ophthalmology for driving clearance
If patient continues to be stable 24 hours post TNK then could be transferred out of ICU-call pulmonary if respiratory issues arise
The patient last saw Dr. Workman in the office 12/19/2024 and maintained on Dulera, albuterol, CT chest November 2025 was recommended
Critical care statement: A total of 40 minutes of critical care time was provided for this patient today. This includes management of unstable vital signs, evaluation of the patient at bedside, reviewing the patient's pertinent medical records
including radiographs, microbiology, laboratory evaluations, and discussion with primary team, consultants, pharmacy, nutrition, physical therapy, case management, charge nurse, critical care nursing, and respiratory therapy.
Diagnostic data:
Chest x-ray 01/23/2025-NAD
CT chest 08/20/21-scattered bilateral pulmonary nodules measuring up to 8 mm, Follow-up CT recommended in 3-6 [address] chest 12/16/21-comparison made to 08/20/21, stable nodules, 3 and 6 mm-left upper lobe, 3, 4, and 6 mm-right lower lobe, an 8 mm left lower lobe-patient notified-repeat in one year-prescription sent ,
CT chest 11/23/22-multiple pulmonary nodules again demonstrated which are stable, tiny low attenuation 2.5 mm nodule anterior left upper lobe, slightly increased in size, previously measuring 1.5 mm-patient notify-repeat in one year-prescription sent .
CT chest 12/07/23-multiple bilateral subcentimeter pulmonary nodules essentially stable, 8mm left lower lobe, 6 mm left upper lobe, 3 mm right lower lobe, 3 mm right upper lobe, 4 mm right lower lobe, 2 mm right lower lobe now 3 mm nodules
essentially without change-patient notified- repeat in 1 year-prescription sent .
CT chest 12/07/24-multiple, unchanged nodules including 10 mm medial left lower lobe, 8mm centrally calcified nodule left upper lobe, 4 mm right upper lobe, 4 mm right lower lobe, 5 mm left upper lobe, possibly slightly enlarged from previous 4 mm
and unchanged 6 mm nodule lateral right lower lobe and minimal increase in size of 5.4 mm nodule right lower lobe, previously 4.5 mm-patient notified-repeat in one year-prescription sent.
CT head 01/23/2025-no intracranial hemorrhage or abnormal mass effect, stable focus of hypoattenuation in the left parotid lobe unchanged compared to prior MRI, no definitive transcortical infarct
CT head and neck angiogram 01/23/2025-no evidence for large vessel occlusion or arterial dissection
Spirometry 11/12/21-FEV1 2.69 L-114%, FVC 3.19 L-104%, no significant BD response. Normal spirometry.
PFT 05/13/22-FEV1 2.86 L-119%, FVC 3.41 L-109%, TLC 103%, RV 80%, DLCO 99%. Normal. PFTs
Subjective Dataa
Subjective Data
Date of Service:
Date of Service: January 24, 2025
Chief Complaint: Airline Reservation Agent Follow Up, Pulmonary Follow Up and Other ( CVA)
Subjective:
uneventful night, no complaints of dysarthria, left arm weakness, weakness overall, numbness, shortness of breath, chest pain or abdominal pain
Review of Systems
General: Other ( Per HPI)
Objective Data
Data Reviewed
Vital Signs / I&O / Oxygen:
Vital Signs
Temp Pulse Resp BP Pulse Ox
98.7 F 77 16 123/72 97
01/24/25 07:28 01/24/25 07:19 01/24/25 07:19 01/24/25 06:45 01/24/25 07:19
Intake and Output
01/23/25 01/24/25 01/25/25
06:59 06:59 06:59
Intake Total 200 / 200
Output Total 2650 / 2650
Balance -2450 / -2450
SaO2 97
Nasal Cannula flow liters per 99
minute
Physical Exam
General: Respiratory Distress (n) and Comfortable
HEENT: Normocephalic, Anicteric and Moist Mucous Membranes
Cardiovascular: Regular Rhythm
Respiratory: Wheeze (n), Crackles (n), Rhonchi (n), Non-Labored Respirations and Accessory Resp Muscle Use (n)
GI: Soft, Non Distended and Non Tender
Neurology: Awake, Alert and No Motor Deficits
Skin: Warm, Good Color, Cyanosis (n) and Jaundice (n)
Labs/Micro/Reports
Lab Data
01/24/25 04:41
01/24/25 04:41
Laboratory Results
01/23/25 01/24/25
12:01 04:41
PT 13.6 14.1
INR 1.01 1.06
APTT 27.9 28.9
--- NOTE | 2025-01-24 11:40 | PTCARENOTE ---
Pt received in bed @ 0700. NIHSS 0. Pt stating left eye without visual deviation. Denying numbness or weakness in left hand. Expressive aphasia not observed upon assessment. Pt states that expressive aphasia happens to her in time of stress and
believes it is related to MS diagnosis. Pt reporting headache relived by PRN Tylenol and Fioricet. Reporting 1/10 anterior headache pain after Fioricet administration. SaO2 99%. Lungs clear. Sinus rhythm on cardiac monitor. Trace LE edema. Pedal
pulses palpable. Pt assisted OOB to bathroom with minimal assistance. ECHO being completed at bedside. Telemetry orders.
--- NOTE | 2025-01-24 12:28 | CM ---
Initial assessment completed with patient who lives with her in a 2 story home plus basement with B/B on 2nd and 1/2 bath on , 2 steps to enter. [employer] patient was independent in ADL's and ambulation, drove and works PT. Has a nebulizer at
home which she uses infrequently. No in-home services. Does have a HC-POA. No service. URINALYSIS TECHNICIAN is Raquel Callejas with [facility]. Pharmacy is [facility] on [address] in [place] and [address] in [facility]. She prefers using
[facility]. Discharge POC: TBD. Anticipate home with no needs vs Home with HH.
--- NOTE | 2025-01-24 13:15 | W.PN.HOSP.TC ---
Today's Communication/Plan
-
MRI Brain w/wo
increase Statin
BP control once MRI brain performed
can be downgraded to tele
Assessment / Plan
Assessment / Plan
Physical Exam
General: Respiratory Distress (n) and Comfortable
HEENT: Normocephalic, Anicteric and Moist Mucous Membranes
Cardiovascular: Regular Rhythm
Respiratory: Wheeze (n), Crackles (n), Rhonchi (n), Non-Labored Respirations and Accessory Resp Muscle Use (n)
GI: Soft, Non Distended and Non Tender
Neurology: Awake, Alert and No Motor Deficits
Skin: Warm, Good Color, Cyanosis (n) and Jaundice (n)
# Concern for acute CVA
#aphasia, left arm numbness, left pronator drift
-CT angio head and neck without any focal occlusions
- TNK given 01/23
-24 hour ICu monitoring
-MRI Brain w/wo contrast today
-Neuro checks
-Tele
- Check A1c - 5.1
- lipid panel; LDL 109 - Increase statin to 40mg qhs
-F/u ECHO
- Speech and swallow, PT OT
- Neurology following
# Hypertensive urgency
# Essential hypertension
- Blood pressure 170s
- IV labetalol to keep blood pressure under 180/100
- Continue chlorthalidone
-Restart Bp meds once MRI cleared and neuro clearance
Multiple sclerosis
- Has been stable on fingolimod for years
-most likely cva in current setting rather than MS flare - will f/u mri brain
Asthma
- Continue albuterol, Dulera
Hypercholesterolemia
-increase statin therapy
History of gallstones
-Scheduled to have surgery in the near future
DNR/DNI
DVT prophylaxis�SCDs; s/p TNK
Regular diet
Anticipated Discharge: Within 24 hours
Subjective/Interval History
-
Date of Service: January 24, 2025
patient states symptoms have somewhat improved
Objective Data
-
Labs:
Laboratory Results
01/24/25
04:41
WBC 6.2
Hgb 13.5
Hct 39.5
Plt Count 255
PT 14.1
INR 1.06
APTT 28.9
Sodium 138
Potassium 3.5
Chloride 103
Carbon Dioxide 28
BUN 11
Creatinine 0.8
Glucose 104 H
Calcium 9.4 D
Vital Signs:
Vital Signs
Temp Pulse Resp BP Pulse Ox
98.3 F 71 20 117/82 99
01/24/25 11:16 01/24/25 12:30 01/24/25 12:30 01/24/25 12:00 01/24/25 12:03
I&O
01/23/25 01/24/25 01/25/25
06:59 06:59 06:59
Intake Total 200 / 200
Output Total 2650 / 2650 200 / 200
Balance -2450 / -2450 -200 / -200
Review of Systems
-
History Source: Patient
All other systems: Not reviewed unless documented
Data Reviewed
-
Diagnostic Radiology: Report Reviewed by me
CT Scan: Report Reviewed by me
Labs: Labs Reviewed by me
--- NOTE | 2025-01-24 14:03 | PTCARENOTE ---
Pt transferred from ICU. Pt ambulated into room with assistance. Pt NIH 0, VSS, tele applied. Pt oriented to room, call norton within reach. Will continue with current plan.
--- NOTE | 2025-01-24 14:14 | CM ---
Transferred to Room [facility]-2.
--- NOTE | 2025-01-24 14:59 | PN.CDI ---
CDI
- -
CDI:
Physician Documentation Request
Admit Date: 01/23/25 13:40
Dear Doctor Ascencion,
Please review the following and provide your response in the progress notes.
Clinical Indicators:
PN, 7
# Hypertensive urgency
# Essential hypertension
#...- Blood pressure 170s
#...- IV labetalol to keep blood pressure under 180/100
#...- Continue chlorthalidone
Medications
#Labetalol HCl (Labetalol Hcl 5 Mg/1 Ml (20 Mg/4 Ml) Injection) 5 mg IV Q6HPRN PRN
PRN Reason: BP > 180/105 mmHg
Stop: 02/20/25 13:41
#01/23/25 13:40 Labetalol 5 mg
Selected Entries
01/23/25
12:04 01/23/25
12:30 01/23/25
13:18
Blood pressure 182/97 169/100 160/108
01/23/25
13:30
Blood pressure 175/112
Please clarify which the most accurate diagnosis reflecting the type and acuity of the documented hypertension:
Essential primary hypertension
Hypertensive Urgency - B/P is severely elevated (systolic > or = to 180 or diastolic > or = to 110) but there is no associated organ damage. Symptoms may include: headache, shortness of breath, nosebleeds, severe anxiety. Treatment usually consists
of addition to or adjusting of oral medications and does not generally necessitate hospitalization.
Hypertensive Emergency - B/P is severely elevated (systolic > or = to 180 or diastolic > or = to 110) but can occur at lower levels especially in patients who did not previously have high B/P. There is usually associated organ damage. Symptoms may
include: memory loss, LOC, CVA, TX, angina, renal failure, pulmonary edema. Generally requires more aggressive treatment and a hospitalization.
Other (please specify)
Use of terms such as suspected, likely, concern for, or probable (associated with a specific diagnosis that is being evaluated, monitored, or treated as if it exists) are acceptable and can be coded in the inpatient setting, when documented at the
time of discharge.
Thank you,
Barb Doty RN BSN CCDS
CDI Specialist
Please contact via tiger text
Please use your independent medical judgment in providing your response.
[2025-01-24] MEDS: ASPIR LOW (ENTERIC COATED) 81 MG PO (17:41)
[2025-01-25 03:37] VITALS: BP 103/59
[2025-01-25] MEDS: LIPITOR 40 MG PO (07:29)
[2025-01-25] MEDS: NON-FORMULARY ITEM 1 MG PO (07:29)
[2025-01-25] MEDS: ASPIR LOW (ENTERIC COATED) 81 MG PO (07:29)
[2025-01-25] MEDS: FIORICET 1 TAB PO (07:34)
[2025-01-25 07:40] VITALS: BP 147/84
[2025-01-25] MEDS: SYMBICORT 80/4.5 MCG INHALER 2 PUFF INH (07:49)
[2025-01-25 07:57] LABS: Hematocrit 40.4 % (37.0-47.0); Hemoglobin 13.4 g/dL (12.0-16.0); Mean Corp Hgb Conc. 33.2 g/dL (33.0-37.0); Mean Corpuscular Volume 91.0 fL (81.0-99.0); Platelet Count 255 10^3/uL (130-400); Red Cell Dist. Width 13.6 % (11.5-14.5)
[2025-01-25 08:43] LABS: ALT (SGPT) 56 U/L (0-35); AST (SGOT) 29 U/L (14-36); Alkaline Phosphatase 73 U/L (38-126); Blood Urea Nitrogen 15 mg/dl (7-17); Calcium 10.0 mg/dl (8.4-10.2); Chloride 106 mmol/L (98-107); Estimated Creatinine Clearance 69 ml/min; Glucose 103 mg/dl (70-99); Potassium 4.0 mmol/L (3.5-5.1); Sodium 141 mmol/L (135-145); Total Protein 6.8 g/dl (6.3-8.2); eGFR > 60.00
[2025-01-25 09:18] VITALS: BP 138/88; PULSE 78; O2SAT 97
[2025-01-25] MEDS: KENALOG-40 40 MG IM (10:39)
[2025-01-25 11:11] VITALS: BP 146/84
[2025-01-25 11:18] LABS: Albumin 4.4 g/dl (3.5-5.0); Carbon Dioxide 25 mmol/L (22-30)
--- NOTE | 2025-01-25 12:19 | W.PN.UPDATE ---
Update Note
Progress Note Update
procedure note
19164.50 Trigeminal Nerve Block
M50.0 trigeminal neuralgia
in a 10 cc syringe 21 g x 1 in needle was drawn 9 cc of bupivacaine 0.5% and 40 cc Kenalog-40
needle inserted percutaneously through TMJ into lateral pterygoid, aspirated, and 5 cc injected each side
--- NOTE | 2025-01-25 12:22 | W.PN.NEURO.1 ---
Today's Communication / Plan
-
stroke resolved with TNK
DAPT until 02/10 so she can have gallbladder surgery 02/15 then restart aspirin post op. Lipitor 40
s/p trigeminal nerve block
Neuro Assessment/Plan
Assessment
head CT imgs rev'd no bleed
CTA no LVO, no hemodynamically significant stenosis
CTP core 0, penumbra 0
brain MRI 01/24 imgs rev'd agree no evidence of stroke; chronic MS appears stable
Stroke treated with TNK with resolution
with aphasia left arm numbness and left pronator drift, unable to localize so some suspicion for embolic
given her age and her MS not being very active I would say stroke is more likely than new MS lesion.
Subjective/Objective
Subjective Data
Date of Service: January 25, 2025
aphasia resolved
right sided migraine, hasn't had a migraine in many years
clenching her jaw more from this stress which worsened her trigeminal neuralgia
Objective Data
Vital Signs
Temp Pulse Resp BP Pulse Ox
36.8 C 76 19 146/84 96
01/25/25 11:11 01/25/25 11:11 01/25/25 11:11 01/25/25 11:11 01/25/25 11:11
Lab Results
01/25/25 07:00
01/25/25 07:00
PT 14.1 Sec (11.4-14.6) 01/24/25 04:41
INR 1.06 01/24/25 04:41
APTT 28.9 Sec (23.4-35.0) 01/24/25 04:41
Sodium 141 mmol/L (135-145) 01/25/25 07:00
Potassium 4.0 mmol/L (3.5-5.1) 01/25/25 07:00
BUN 15 mg/dl (7-17) 01/25/25 07:00
Glucose 103 mg/dl (70-99) H 01/25/25 07:00
Calcium 10.0 mg/dl (8.4-10.2) 01/25/25 07:00
Phosphorus 3.9 mg/dl (2.5-4.5) 01/23/25 12:01
LDL Cholesterol, Calc 109 mg/dl 01/24/25 04:41
Patient Allergies
bupropion (From Wellbutrin) Allergy (Verified 01/23/25 13:09)
Unknown
dalfampridine (From Ampyra) Allergy (Verified 01/23/25 13:09)
Unknown
duloxetine (From Cymbalta) Allergy (Verified 01/23/25 13:09)
Unknown
escitalopram (From Lexapro) Allergy (Verified 01/23/25 13:09)
Unknown
glatiramer (copolymer 1) (From Copaxone) Allergy (Verified 01/24/25 17:32)
Unknown
losartan Allergy (Verified 01/23/25 13:09)
Unknown
venlafaxine (From Effexor) Allergy (Verified 01/23/25 13:09)
Unknown
Physical Exam
-
easily names all NIHSS pictures
--- NOTE | 2025-01-25 13:46 | W.PN.HOSP.TC ---
Addendum entered and electronically signed by Eben Vegas MD 01/26/25 16:37:
Essential primary hypertension
Addendum entered and electronically signed by Eben Vegas MD 01/26/25 16:33:
[id number]
Original Note:
Today's Communication/Plan
-
DAPT until 02/10 so she can have gallbladder surgery 02/15 then restart aspirin post op.
Lipitor 40mg qhs
s/p trigeminal nerve block
F/u Neuro, PCP outpt
Assessment / Plan
Assessment / Plan
Physical Exam
General: Respiratory Distress (n) and Comfortable
HEENT: Normocephalic, Anicteric and Moist Mucous Membranes
Cardiovascular: Regular Rhythm
Respiratory: Wheeze (n), Crackles (n), Rhonchi (n), Non-Labored Respirations and Accessory Resp Muscle Use (n)
GI: Soft, Non Distended and Non Tender
Neurology: Awake, Alert and No Motor Deficits
Skin: Warm, Good Color, Cyanosis (n) and Jaundice (n)
# Concern for acute CVA - s/p TNK
#aphasia, left arm numbness, left pronator drift - improving
-CT angio head and neck without any focal occlusions
- TNK given 01/23
-24 hour ICU monitoring
-Neuro checks
-EF 65-60%;
-Tele
- Check A1c - 5.1
- lipid panel; LDL 109 - Increase statin to 40mg qhs
-MRI - No acute intracranial abnormality noted. There is moderate T2/FLAIR hyperintense signal within the white matter of the bilateral cerebral hemispheres and left cerebellar hemisphere which is overall similar to prior likely sequelae of multiple
sclerosis.
- Speech and swallow, PT OT
- Neurology following - f/u outpt
-DAPT until 02/10 so she can have gallbladder surgery 02/15 then restart aspirin post op.
-s/p trigeminal nerve block
# Hypertensive urgency
# Essential hypertension
- improved
-monitor outpatient
Multiple sclerosis
- Has been stable on fingolimod for years
-most likely cva in current setting rather than MS flare
Asthma
- Continue albuterol, Dulera
Hypercholesterolemia
-increase statin therapy
History of gallstones
-Scheduled to have surgery in the near future
DNR/DNI
DVT prophylaxis�SCDs; s/p TNK
Regular diet
More than 30 minutes spent in discharge including
Final examination of the patient
Summarizing hospital stay
Instructions for continuing care to all relevant caregivers
Preparation of discharge records, prescriptions, and referral forms
Total time spent (in minutes): 36
Anticipated Discharge: Today
Subjective/Interval History
-
Date of Service: January 25, 2025
symptoms improved
Objective Data
-
Labs:
Laboratory Results
01/25/25
07:00
WBC 4.5 L
Hgb 13.4
Hct 40.4
Plt Count 255
Sodium 141
Potassium 4.0
Chloride 106
Carbon Dioxide 25
BUN 15
Creatinine 0.8
Glucose 103 H
Calcium 10.0
Total Bilirubin 0.6
AST 29
ALT 56 H
Alkaline Phosphatase 73
Vital Signs:
Vital Signs
Temp Pulse Resp BP Pulse Ox
98.3 F 76 19 146/84 96
01/25/25 11:11 01/25/25 11:11 01/25/25 11:11 01/25/25 11:11 01/25/25 11:11
I&O
01/24/25 01/25/25 01/26/25
06:59 06:59 06:59
Intake Total 200 / 200 840 / 840
Output Total 2650 / 2650 200 / 200
Balance -2450 / -2450 640 / 640
Review of Systems
-
History Source: Patient
All other systems: Not reviewed unless documented
Data Reviewed
-
Diagnostic Radiology: Report Reviewed by me
CT Scan: Report Reviewed by me
Labs: Labs Reviewed by me
--- NOTE | 2025-01-25 13:52 | W.DS.TRANS ---
DC Summary - Sampler And Test Preparer
-
Discharge Instructions:
Discharge Diagnosis/Procedures CVA
Diet Low Cholesterol,Low Fat,2 Gram Sodium
Activity As tolerated
Blood Work CBC and CMP within 5 to 7 days with PCP
Instructions:
Stand-Alone Forms:
Changes to Home Medications: Yes
Discharge Medications:
DC Medications w/original date entered in [employer]
albuterol sulfate 2.5 mg/3 mL (0.083 %) solution for nebulization 2.5 mg inhalation Q4HPRN PRN sob 01/23/25
chlorthalidone 25 mg tablet 12.5 mg PO DAILY Blood Pressure 01/23/25
fingolimod 0.5 mg capsule 0.5 mg PO DAILY Neurological Condition 01/23/25
mometasone-formoterol HFA 50 mcg-5 mcg/actuation aerosol inhaler (Dulera) 2 inh inhalation BID Lung/Breathing Issues 01/23/25
aspirin 81 mg tablet,delayed release 81 mg PO DAILY #30 tabs 01/25/25
atorvastatin 40 mg tablet 40 mg PO DAILY 30 days #30 tabs 01/25/25
clopidogrel 75 mg tablet (Plavix) 75 mg PO DAILY 17 days #17 tabs 01/25/25
Home Medication Changes
aspirin 81 mg tablet,delayed release 81 mg PO DAILY #30 tabs 01/25/25
atorvastatin 40 mg tablet 40 mg PO DAILY 30 days #30 tabs 01/25/25
clopidogrel 75 mg tablet (Plavix) 75 mg PO DAILY 17 days #17 tabs 01/25/25
Pending Results: No
--- NOTE | 2025-01-25 14:07 | CM ---
Patient seen at bedside on . Patient for discharge home with daughter to provide transportation. Patient with no needs at this time. CM will continue to follow for discharge planning needs.
Plan; home with no needs.
== END 2025-01-25 15:32 | disposition home or self-care (01) | DRG 63 ==
LOC: 4 WEST ACU 13:40
PROVIDERS: ADMITTING PHYSICIAN Hospitalist; ATTENDING PHYSICIAN Internal Medicine; CONSULT PHYSICIAN Internal Medicine Critical Care Medicine; CONSULT PHYSICIAN Psychiatry & Neurology Clinical Neurophysiology; EMERGENCY PHYSICIAN Emergency Medicine; FAMILY PHYSICIAN Physician Assistant Medical
PROC: 3E03317 Introduction of Other Thrombolytic into Peripheral Vein, Percutaneous Approach (ICD-10-PCS; 2025-01-25)
DX: I63.9 Cerebral infarction, unspecified (principal); R47.01 Aphasia; G35 Multiple sclerosis; H54.7 Unspecified visual loss; I16.0 Hypertensive urgency; I10 Essential (primary) hypertension; E78.00 Pure hypercholesterolemia, unspecified; Z66 Do not resuscitate; G50.0 Trigeminal neuralgia; J45.909 Unspecified asthma, uncomplicated; R29.701 NIHSS score 1
CPT/HCPCS: 0042T; 70450; 70496; 70498; 70553; 71045; 80048; 80053; 80061; 82248; 82962; 83036; 83735; 84100; 84484; 85025; 85027; 85610; 85730; 92507; 92523; 92610; 93005; 93306; 94640; 96374; 97162; 97166; 99291; A9575; J3101; Q9967

== ENCOUNTER 2025-01-26 10:32 | Emergency (ER) | payer OTHER, SELFPAY ==
[2025-01-26] VITALS (16 sets, daily range): BP systolic 125–195; BP diastolic 82–130; BMI 31.4
--- NOTE | 2025-01-26 10:48 | EDRN ---
Pt placed stuff down in room and then ambulate w/ PCT to CT scan.
--- NOTE | 2025-01-26 10:53 | EDRN ---
Pt changing in BR at this time.
--- NOTE | 2025-01-26 11:05 | EDRN ---
Dr. Cohen in to see pt.
[2025-01-26 11:16] LABS: Hematocrit 39.9 % (37.0-47.0); Hemoglobin 14.0 g/dL (12.0-16.0); Mean Corp Hgb Conc. 35.1 g/dL (33.0-37.0); Mean Corpuscular Volume 88.5 fL (81.0-99.0); Nucleated Red Blood Cells % 0 %; Platelet Count 271 10^3/uL (130-400); Red Cell Dist. Width 13.4 % (11.5-14.5)
[2025-01-26 11:50] LABS: ALT (SGPT) 67 U/L (0-35); AST (SGOT) 31 U/L (14-36); Albumin 4.9 g/dl (3.5-5.0); Alkaline Phosphatase 82 U/L (38-126); Blood Urea Nitrogen 13 mg/dl (7-17); Calcium 10.8 mg/dl (8.4-10.2); Carbon Dioxide 26 mmol/L (22-30); Chloride 105 mmol/L (98-107); Estimated Creatinine Clearance 79 ml/min; Glucose 105 mg/dl (70-99); Potassium 3.8 mmol/L (3.5-5.1); Sodium 140 mmol/L (135-145); Total Protein 7.5 g/dl (6.3-8.2); eGFR > 60.00
--- NOTE | 2025-01-26 14:52 | ED.GENMED ---
History of Present Illness
General
Chief Complaint: Blood Pressure Problem
Source: patient
Exam Limitations: none
Time Seen by Provider: 01/26/25 10:59
History of Present Illness
History of Present Illness:
Patient woke up in the middle the night which is not unusual. She was lying checking her blood pressure and was noted to be 150s over 90s. She rechecked and it was slightly elevated. She rechecked it again it was more elevated. This prompted ER
evaluation. She had a recent CVA with TNK. She denies acute neurologic symptoms unusual headache blurry vision chest pain shortness of breath or other complaints
Past History
Past History
ED Past Medical History: CVA, HTN, Hypercholesterolemia, Psychiatric and Other (MS)
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
Social History
Tobacco: Non-smoker
Alcohol: None
Personal:
Living: with family
Family History
Family History: Negative Early CAD
Review of Systems
Review of Systems
All Other Systems: Not applicable
Respiratory: Reports no symptoms
Cardiac: Reports no symptoms
Neurological: Reports no symptoms
Phy Exam
Physical Exam
Physical Exam:
GENERAL: Alert and oriented in no apparent distress
EYE: Orbits normal.
NECK: Supple, no significant adenopathy.
ENT: Pharynx without erythema
CARDIAC: Regular rate and rhythm without any obvious murmurs.
LUNGS: Clear breath sounds,normal
ABDOMEN: Soft, without focal tenderness or distention
NEUROLOGICAL: Alert and oriented , cranial nerves II through XII intact. Speech normal. Eoidof-os-zvcm normal. No drift. Zkxu-fv-[id number] normal. Light touch intact. Eye confrontation normal.
SKIN: Warm and dry, no rash or lesion, no discoloration, skin intact.
MUSCULOSKELETAL: No edema,no deformity.Good color
PSYCH: Normal and appropriate interaction.
Course
Orders/Labs/Results
Orders:
Orders
01/26/25 10:38
ECG [Electrocardiogram (*1)] Urgent
Reason for Study: Hypertension, Benign
EKG- Treatment ONCE
01/26/25 10:40
CT Head W/o Iv Contrast Urgent
Comment:
Reason For Exam: numbness recent cva
01/26/25 11:08
Complete Blood Count/With Diff Urgent
Comprehensive Metabolic Panel Urgent
01/26/25 14:51
Amlodipine [Norvasc] 2.5 mg PO NOW STA
Abnormal Lab Results
01/26/25
11:08
MPV 10.5 H fL
(7.4-10.4)
Absolute Neuts (auto) 6.8 H 10^3/uL
(1.4-6.5)
Absolute Lymphs (auto) 0.3 L 10^3/uL
(1.2-3.4)
Neutrophils % 90.2 H %
(42.2-75.2)
Lymphocytes % 4.4 L %
(20.5-51.1)
Glucose 105 H mg/dl
(70-99)
Calcium 10.8 H mg/dl
(8.4-10.2)
ALT 67 H U/L
(0-35)
01/26/25 11:08
01/26/25 11:08
Vital Signs
Initial and Last Documented VS:
Initial Vital Signs
Temp Pulse Resp BP Pulse Ox
98.7 F 87 18 195/130 100
01/26/25 10:33 01/26/25 10:33 01/26/25 10:33 01/26/25 10:33 01/26/25 10:33
Last Documented Vital Signs
Temp Pulse Resp BP Pulse Ox
98.7 F 62 17 146/83 95
01/26/25 10:33 01/26/25 17:00 01/26/25 17:00 01/26/25 17:00 01/26/25 16:10
MDM/Problems Addressed
Differential Diagnosis Includes:
Patient with blood pressure elevation with no other symptoms. There may be a significant anxiety component as the blood pressure got higher as she became more anxious. However it remains minimally elevated and with her recent CVA we will start a
very low-dose of amlodipine to follow-up. Stable neurologic workup and exam. Discussed with neurology
*Radiology
Radiology exam reviewed: radiology read reviewed (No acute findings)
*Pulse Oximetry
SaO2: 96
Oxygen Mode of Delivery: Room air
Patient hypoxic: no
*EKG
Interpreted by ED Provider?: Yes
Interpretation: normal
Comparison EKG: no changes
Heart Rate: 77
Rate: normal
Rhythm: sinus
Robinson: normal axis
Interval: normal interval
QRS Pattern: normal QRS
Ischemia: no ischemia
*[employer] Repairer Interpretation
Rate: normal
Interpretation: normal
Heart Rate: 80
Rhythm: sinus
*Critical Care Note
Total Time (30-74mins, 75-104mins- exclusive of procedures): Not Applicable
Data Reviewed
Review of Other/Old Records Reveals: Labs, Records, Radiology Studies, Testing and Discharge Summary
Update Note
Update Note:
Patient is remained stable and nontoxic. Last blood pressure 150/90. Discussed starting a very low-dose of a antihypertensive medication versus observation. Feel with her recent CVA reasonable to start something very low. Will give a dose of
amlodipine with plan for discharge to follow-up
ED Attending Note
-
Portions of this chart may have been created with voice recognition software.� Occasional wrong word or��sound alike� substitutions may have occurred due to the inherent limitations of voice recognition software.
Discharge Plan
Departure
Patient Disposition: Home (Routine Discharge)
Date of Disposition: 01/26/25
Time of Disposition: 15:05
Patient with high blood pressure during this ER visit?: Yes
Discharge Problem:
High blood pressure, Recent CVA
Instructions: High Blood Pressure (DC), BLOOD PRESSURE
Prescriptions:
New
amlodipine 2.5 mg tablet
2.5 mg PO DAILY Qty: 30 0RF
No Action
albuterol sulfate 2.5 mg /3 mL (0.083 %) Solution For Nebulization
2.5 mg inhalation Q4HPRN PRN (Reason: sob)
chlorthalidone 25 mg Tablet
12.5 mg PO DAILY
fingolimod 0.5 mg Capsule
0.5 mg PO DAILY
Dulera 50-5 mcg/actuation Hfa Aerosol Inhaler
2 inh INHALATION BID
aspirin 81 mg Tablet,Delayed Release (Dr/Ec)
81 mg PO DAILY Qty: 30 0RF
atorvastatin 40 mg Tablet
40 mg PO DAILY 30 Days Qty: 30 0RF
clopidogrel [Plavix] 75 mg tablet
75 mg PO DAILY 17 Days Qty: 17 0RF
Rx Instructions:
until 02/10
Referrals:
Ivis Callejas PA [Family Provider, Family Practice] - Follow up in 2-3 days
Activity Restrictions/Additional Instructions:
Follow your blood pressure at home.
Start the amlodipine
If your blood pressure drops stop the amlodipine.
Return immediately with any acute neurologic symptoms, unusual headache passing out lightheadedness or any other concerning symptoms
Interventions
Interventions:
*Risk Screen - Suicide Last Done: 01/26/25 10:33
*General Assessment Last Done: 01/26/25 11:05
*Neglect/Abuse Screening Last Done: 01/26/25 10:33
*ED- Fall Risk Assessment Last Done: 01/26/25 11:05
*ED COVID-19 Vaccine History Last Done: 01/26/25 11:05
*Nursing Disposition Last Done: 01/26/25 17:10
ED- Cardiac Assessment Last Done: 01/26/25 11:14
ED- Neurological Assessment Last Done: 01/26/25 11:14
ED- Pulmonary Assessment Last Done: 01/26/25 11:14
Discharge Date and Time
Discharge Date/Time: 01/26/25 17:10
Print Language: LEBANESE
[2025-01-26] MEDS: NORVASC 2.5 MG PO (15:32)
== END 2025-01-26 17:10 | disposition home or self-care (01) ==
LOC: EMR 10:32
PROVIDERS: Emergency Medicine; EMERGENCY PHYSICIAN Emergency Medicine; FAMILY PHYSICIAN Physician Assistant Medical
DX: I10 Essential (primary) hypertension (principal); E78.00 Pure hypercholesterolemia, unspecified; Z86.73 Personal history of transient ischemic attack (TIA), and cerebral infarction without residual deficits
CPT/HCPCS: 99284; 70450; 80053; 85025; 93005

== ENCOUNTER → 2025-02-14 07:40 | Outpatient (REF) | payer OTHER, SELFPAY | LOC: RAD 07:40 | PROVIDERS: ATTENDING PHYSICIAN Physician Assistant Medical | DX: Z86.73 Personal history of transient ischemic attack (TIA), and cerebral infarction without residual deficits (principal); I10 Essential (primary) hypertension; E78.49 Other hyperlipidemia | CPT/HCPCS: 93225; 93226; 93880 ==

== ENCOUNTER 2025-05-17 06:07 | Day surgery (SDC) | payer OTHER, SELFPAY ==
[2025-05-17] VITALS (8 sets, daily range): BP systolic 116–145; BP diastolic 67–86; BMI 29.5
--- NOTE | 2025-05-17 08:57 | W.SUR.PREOP ---
Pre-Operative Surgical Note
-
I have examined this patient prior to the performance of the scheduled procedure.
The patient's condition is unchanged from the time of the current History and
Physical and the patient is able to undergo the scheduled procedure.
--- NOTE | 2025-05-17 08:57 | HP.FOC2 ---
Focused History & Physical
Chief Complaint
HPI:
Chief Complaint: biliary colic
HPI / Indication for Planned Procedure: 64F p/w biliary colic. Will plan for a laparoscopic cholecystectomy with cholangiogram.
Relevant Past Medical History: Negative
Relevant Social History: Negative
Relevant Family History: Negative
Relevant Past Surgical History: Negative
Review of Systems
Review of Pertinent Systems: All Systems Negative
Medication
See Medication form for detailed medications: Yes
Medication List (including Herbals & OTC):
albuterol sulfate 2.5 mg/3 mL (0.083 %) solution for nebulization 2.5 mg inhalation Q4HPRN PRN sob 01/23/25
chlorthalidone 25 mg tablet 12.5 mg PO DAILY Blood Pressure 01/23/25
fingolimod 0.5 mg capsule 0.5 mg PO DAILY MS 01/23/25
aspirin 81 mg tablet,delayed release 81 mg PO DAILY #30 tabs 01/25/25
atorvastatin 40 mg tablet 40 mg PO DAILY 30 days #30 tabs 01/25/25
[place] 3 1 cap PO DAILY 05/16/25
amlodipine 2.5 mg tablet 5 mg PO HS 05/16/25
ascorbic acid (vitamin C) 500 mg tablet,extended release (Vitamin C ER) 500 mg PO DAILY 05/16/25
calcium 1 tab PO DAILY 05/16/25
fluticasone 100 mcg-salmeterol 50 mcg/dose blistr powdr for inhalation (Wixela Inhub) 1 inh inhalation Q12H 05/16/25
vitamin D3-vitamin K2 1 cap PO DAILY 05/16/25
Medications Reviewed: Yes
Allergies and Reactions
Patient has Allergies: Yes
Noted Allergies and Reactions:
Allergy/AdvReac Type Severity Reaction Status Date / Time
bupropion (From Wellbutrin) Allergy Mild Unknown Verified 05/17/25 08:49
dalfampridine (From Ampyra) Allergy Mild Unknown Verified 05/17/25 08:49
duloxetine (From Cymbalta) Allergy Unknown Verified 05/17/25 08:49
escitalopram (From Lexapro) Allergy Unknown Verified 05/17/25 08:49
glatiramer (copolymer 1) Allergy Unknown Verified 05/17/25 08:49
(From Copaxone)
losartan Allergy Unknown Verified 05/17/25 08:49
venlafaxine (From Effexor) Allergy Unknown Verified 05/17/25 08:49
Pertinent Physical Exam
All Other Systems: Negative
Head/Neck: Normal
Diagnosis / Assessment
64F p/w biliary colic. Will plan for a laparoscopic cholecystectomy with cholangiogram.
Plan / Procedure
64F p/w biliary colic. Will plan for a laparoscopic cholecystectomy with cholangiogram.
Anesthesia/Sedation to be done by Anesthesia Provider: Yes
[2025-05-17] MEDS: TYLENOL 1000 MG PO (08:58)
[2025-05-17] MEDS: NORMOSOL-R/PLASMALYTE-A 1000 IV (09:04)
--- NOTE | 2025-05-17 10:43 | W.IMMPOSTOP ---
Surgical Immed Post Op Note
-
Primary Surgeon: Connor Ricks MD
Assisting Surgeon: None
Pre-op Diagnosis: Biliary colic
Post-op Diagnosis: Same
Procedure Performed: Laparoscopic cholecystectomy with cholangiogram
Anesthesia Type: General
Specimen / Cultures: Gallbladder and contents
Estimated Blood Loss: 3 cc
Complications: None
Operative Findings: Fairly normal-appearing but distended gallbladder packed with stones. Critical view of safety obtained prior to a cholangiogram which demonstrated no distal filling defects and normal biliary anatomy. Large bosselated cazares
appearing gallstones removed through the epigastric port to minimize port enlargement. There was minimal spillage of bile from our ductotomy, no spillage of stones.
--- NOTE | 2025-05-17 10:49 | OR.RPT ---
Operative Report
Operative Report
Patient Name: Ros Castro
: 1960
Date of Operation: 05/17/2025
Preoperative Diagnosis: Biliary colic
Postoperative Diagnosis: Same
Procedure(s):
Laparoscopic Cholecystectomy with Cholangiogram
Surgeon(s):
Dr. Ricks
Associate Software Developer(s):
None
Anesthesia: General
Estimated Blood Loss: 3 cc
Urine Output: None
Drains/Lines/Implants: None
Specimens:
1. Gallbladder and contents
HPI/Surgical Indications:
This is a 64-year-old female who presented to my clinic with postprandial right upper quadrant pain. Exam, labs and imaging are consistent with biliary colic. Risks/Benefits/Alternatives were discussed at length, and the patient consented to proceed
with surgery.
Operative Findings: Fairly normal-appearing but distended gallbladder packed with stones. Critical view of safety obtained prior to a cholangiogram which demonstrated no distal filling defects and normal biliary anatomy. Duct ligated with a clip
followed by 0 PDS Endoloop. Large bosselated cazares appearing gallstones removed through the epigastric port to minimize port enlargement. There was minimal spillage of bile from our ductotomy, no spillage of stones.
Procedure Description:
The patient was brought to the Operating Room and placed in the supine position with one arm tucked. Following uneventful induction of general endotracheal anesthesia, an orogastric tube was placed. The abdomen was prepped and draped in the usual
sterile fashion. A timeout was performed confirming the procedure, consent, and that IV antibiotics were infused and sequential compression devices were confirmed to be on. The abdomen was entered using a left subcostal Veress technique which
required a single pass followed by a 5 mm right upper quadrant Optiview trocar. Pneumoperitoneum to 15 mmHg pressure was obtained without difficulty and we confirmed that no injury had occurred during our entry. The patient was positioned in
reverse Trendelenberg and rotated with the right side up slightly. Two 5 mm trocars were then placed along the right subcostal margin, followed by a 12 mm port in the epigastrium. The gallbladder was distended and multiple large gallstones could
be visualized through the wall. A locking grasping forceps was placed on the fundus of the gallbladder where it was then retracted cephalad and to the right. Using appropriate grasping instruments, the peritoneum overlying the triangle of Calot was
incised and extended superiorly on both the anterior and posterior gallbladder carmona. The lower third of the gallbladder was dissected off the cystic plate. The cystic triangle was dissected until 2 and only 2 structures were seen entering the
gallbladder, thus a critical view of safety was achieved. The cystic artery was clipped with 5 mm titanium clips and divided. The cystic duct was clipped high on the gallbladder. A ductotomy was made and a cholangiocatheter on an Ramirez clamp was
inserted into the cystic duct. A C-arm was draped and brought into the field. An intra-operative cholangiogram was performed and was noted to have:
No filling defects in the biliary tree
No significant biliary dilation
Brisk flow of contrast into the duodenum
Normal biliary anatomy
The catheter was then removed and the cystic duct was controlled with a clip followed by 0 PDS Endoloop. After ensuring both the artery and duct were divided, the gallbladder was freed from the liver using electrocautery. There was some spillage
of bile from our ductotomy, but no spillage of stones. The gallbladder bed was inspected and excellent hemostasis was obtained. The gallbladder was extracted through the 12 mm trocar site using an endocatch bag without dilating the port site. The
abdomen was again irrigated and excellent hemostasis was assured. All remaining trocars were then removed and the pneumoperitoneum was evacuated. The 12 mm trocar site was closed using 0 PDS suture. All trocar sites were closed at the skin level
using 4-0 Monocryl followed by Dermabond. Overall, the patient tolerated the procedure well and was taken to the Recovery Room postoperatively in stable condition.
I was the attending physician and performed the procedure without assistance. I was present for all portions of the procedure.
Connor Ricks MD
== END 2025-05-17 13:15 | disposition home or self-care (01) ==
LOC: SDS 06:07
PROVIDERS: ATTENDING PHYSICIAN Surgery
DX: K80.10 Calculus of gallbladder with chronic cholecystitis without obstruction (principal)
CPT/HCPCS: 47563; 74300; 76000; 88304; A4300